=== PATIENT | female | born 1950 | race Caucasian/White ===

== ENCOUNTER → 2021-01-25 | Outpatient (CLI) | payer MEDICARE | END | disposition home or self-care (01) | LOC: LAB 18:43 → LAB SHORT 18:43 | DX: Z20.822 Contact with and (suspected) exposure to COVID-19 (principal) | CPT/HCPCS: U0003 ==

== ENCOUNTER → 2021-05-15 | Outpatient (CLI) | payer MEDICARE ==
[2021-05-15 13:24] LABS: BASOPHILS ABSOLUTE AUTO 0.08 K/mm3 (0.00-0.23); BASOPHILS PERCENT AUTO 1 % (0-2); EOSINOPHILS ABSOLUTE AUTO 0.29 K/mm3 (0.00-0.68); EOSINOPHILS PERCENT AUTO 5 % (0-6); Hematocrit 43.1 % (33.0-51.0); Hemoglobin 14.6 g/dL (11.5-16.0); IMMATURE GRAN ABSOLUTE AUTO 0.01 K/mm3 (0.00-0.10); IMMATURE GRAN PERCENT AUTO 0 % (0-1); LYMPHOCYTES ABSOLUTE AUTO 2.16 K/mm3 (0.84-5.20); LYMPHOCYTES PERCENT AUTO 38 % (21-46); MONOCYTES PERCENT AUTO 9 % (4-13); Mean Corpuscular HGB 32.7 pg (26.0-34.0); Mean Corpuscular HGB Conc 33.9 g/dL (31.5-36.5); Mean Corpuscular Volume 96 fL (80-100); NEUTROPHILS PERCENT AUTO 46 % (41-73); Platelet Count 370 K/mm3 (150-400); RDW Coefficient Variation 13.2 % (11.7-14.2); RDW Standard Deviation 46.8 fL (35.1-46.3); Red Blood Cell Count 4.47 M/mm3 (3.80-5.20); White Blood Cell Count 5.64 K/mm3 (4.00-11.30)
[2021-05-15 13:35] LABS: Anion Gap 12 mmol/L (6-16); Blood Urea Nitrogen 20 mg/dL (8-24); Bun/Creatinine Ratio 18.5 (12.0-20.0); CO2, Blood 25 mmol/L (21-32); Chloride, Blood 103 mmol/L (98-108); Creatinine, Blood 1.08 mg/dL (0.40-1.00); Glomerular Filtration Rate 50 (60-); Glucose, Blood 92 mg/dL (70-99); Potassium, Blood 3.8 mmol/L (3.5-5.5); Sodium, Blood 140 mmol/L (136-145)
[2021-05-15 13:36] LABS: Troponin I <0.017 ng/mL (0.000-0.040)
== END | disposition home or self-care (01) ==
LOC: LAB 13:17 → LAB SHORT 13:17
PROVIDERS: Family Medicine
DX: R07.9 Chest pain, unspecified (principal)
CPT/HCPCS: 80048; 83880; 84484; 85025; 85379

== ENCOUNTER → 2023-01-26 | Outpatient (CLI) | payer MEDICARE | END | disposition home or self-care (01) | LOC: LAB SHORT 17:45 → LAB 17:45 | DX: N39.0 Urinary tract infection, site not specified (principal) | CPT/HCPCS: 87077; 87086; 87186 ==

== ENCOUNTER → 2023-02-20 | Outpatient (CLI) | payer MEDICARE ==
[2023-02-20 11:03] LABS: Source, Urine Clean Catch
[2023-02-20 11:21] LABS: Appearance, Urine Hazy (Clear); Bilirubin, Urine 2+ (Neg); Blood, Urine 1+ (Neg); Color, Urine Orange (P-Yellow); Glucose Qualitative, Urine Neg (Normal); Ketones, Urine Neg (Neg); Leukocyte Esterase, Urine 2+ (Neg); Nitrite, Urine Pos (Neg); Protein, Urine 2+ (Neg); Urobilinogen, Urine 2+ (Normal); White Blood Cells, Urine 25-50 /hpf (0-5)
[2023-02-20 11:22] LABS: Bacteria Many /hpf; Renal Epithelial Few /hpf (0-Rare); Squamous Epithelial Cells Few /hpf (Few)
== END | disposition home or self-care (01) ==
LOC: LAB SHORT 10:59 → LAB 10:59
PROVIDERS: Family Medicine
DX: R30.0 Dysuria (principal)
CPT/HCPCS: 81001; 87077; 87086; 87186

== ENCOUNTER 2023-10-15 09:36 | Day surgery (SDC) | payer MEDICARE ==
[~2023-10-15] VITALS: Ht 172.7 cm; Wt 104.5 kg
[~2023-10-15 09:36] MED LIST: ACET500 PO; ALPR.5; CELEXA40 M1 PO; EUTHYROX88 MCG PO; NAPR220 PO; NORTRIPTYLINE H5012 PO; OMEP20ER PO; ZOCOR20 MG PO
[2023-10-15] MEDS ORDERED: CALCIUM CIT 311 EAC7 (10:01)
[2023-10-15] MEDS ORDERED: Vitamin B-12100 MCG (10:01)
[2023-10-15] MEDS ORDERED: VITAMIN D310 MC4 (10:01)
[2023-10-15 12:17] VITALS: BP 136/74
== END 2023-10-15 12:15 | disposition home or self-care (01) ==
LOC: ORSCSDS 09:36
PROVIDERS: Internal Medicine Gastroenterology
PROC: 0DB58ZX Excision of Esophagus, Via Natural or Artificial Opening Endoscopic, Diagnostic (ICD-10-PCS; principal; 2023-10-15 11:00)
PROC: 0DJ08ZZ Inspection of Upper Intestinal Tract, Via Natural or Artificial Opening Endoscopic (ICD-10-PCS; principal; 2023-10-15 11:00)
DX: R13.10 Dysphagia, unspecified (principal); K22.2 Esophageal obstruction; K44.9 Diaphragmatic hernia without obstruction or gangrene; E03.9 Hypothyroidism, unspecified; E78.5 Hyperlipidemia, unspecified; F41.9 Anxiety disorder, unspecified; F32.A Depression, unspecified; Z79.899 Other long term (current) drug therapy
CPT/HCPCS: C1726; J2704; J7120

== ENCOUNTER → 2024-01-19 | Outpatient (CLI) | payer MEDICARE ==
[~2024-01-19] MED LIST changes: +CALCIUM CIT 311 EAC7; +VITAMIN D310 MC4; +Vitamin B-12100 MCG
== END | disposition home or self-care (01) ==
LOC: LAB 12:25 → LAB SHORT 12:25
DX: R30.0 Dysuria (principal)
CPT/HCPCS: 87077; 87086; 87186

== ENCOUNTER 2024-06-02 12:53 | Emergency (ER) | payer MEDICARE ==
[~2024-06-02] VITALS: Ht 172.7 cm; Wt 99.8 kg
[2024-06-02 13:05] VITALS: BP 137/70
[2024-06-02 13:30] LABS: Source, Urine Clean Catch
[2024-06-02 13:36] LABS: Appearance, Urine Hazy (Clear); Bilirubin, Urine Neg (Neg); Blood, Urine 5+ (Neg); Glucose Qualitative, Urine Neg (Neg); Ketones, Urine Neg (Neg); Leukocyte Esterase, Urine 3+ (Neg); Nitrite, Urine Neg (Neg); Protein, Urine 2+ (Neg); Specific Gravity, Urine 1.005 (1.003-1.022); Urobilinogen, Urine NORM (Normal)
[2024-06-02 13:43] LABS: Color, Urine Pale Yellow (P-Yellow)
[2024-06-02 13:48] LABS: Bacteria Many /hpf; Squamous Epithelial Cells Rare /hpf (Few); White Blood Cells, Urine 50-100 /hpf (0-5)
[2024-06-02] MEDS ORDERED: Macrobid 100 M100 MG PO (13:58)
[2024-06-02] MEDS ORDERED: Pyridium200 MG PO (13:58)
== END 2024-06-02 14:02 | disposition home or self-care (01) ==
LOC: ER 12:53
PROVIDERS: Physician Assistant
DX: N39.0 Urinary tract infection, site not specified (principal); Z79.899 Other long term (current) drug therapy
CPT/HCPCS: 81001; 87077; 87086; 87186; 99283

== ENCOUNTER → 2024-08-17 | Outpatient (CLI) | payer MEDICARE ==
[~2024-08-17] MED LIST changes: +Macrobid 100 M100 MG PO; +Pyridium200 MG PO
[2024-08-17 15:08] LABS: Source, Urine Voided
[2024-08-17 16:19] LABS: Appearance, Urine Hazy (Clear); Bilirubin, Urine Neg (Neg); Blood, Urine 1+ (Neg); Color, Urine Yellow (P-Yellow); Glucose Qualitative, Urine Neg (Neg); Ketones, Urine Neg (Neg); Leukocyte Esterase, Urine 3+ (Neg); Nitrite, Urine Pos (Neg); Protein, Urine Neg (Neg); Urobilinogen, Urine 1+ (Normal)
[2024-08-17 16:28] LABS: Bacteria Many /hpf; Squamous Epithelial Cells Rare /hpf (Few)
== END ==
LOC: LAB 15:04 → LAB SHORT 15:04
PROVIDERS: Hospitalist
DX: R30.0 Dysuria (principal)
CPT/HCPCS: 81015; 87077; 87086; 87186

== ENCOUNTER → 2025-03-13 | Outpatient (CLI) | payer MEDICARE | LOC: LAB SHORT 15:14 → LAB 15:14 | DX: N39.0 Urinary tract infection, site not specified (principal) | CPT/HCPCS: 87077; 87086; 87186 ==

== ENCOUNTER → 2025-09-23 | Outpatient (CLI) | payer MEDICARE | LOC: LAB SHORT 16:56 → LAB 16:56 | DX: N39.0 Urinary tract infection, site not specified (principal) | CPT/HCPCS: 87077; 87086; 87186 ==